=== PATIENT | female | born 1945 | race Caucasian/White ===

== ENCOUNTER → 2019-01-14 | Outpatient (CLI) | payer OTHER ==
[~2019-01-14] MED LIST: ADDERALL PO; BUPROPION PO; CALTRATE-600 W1 EACH PO; ESTRACE PO; IRON PO; PREMARIN0.625 MG PO; SPIRONOLACTONE100 M1 PO; SYNTHROID50 MCG PO; VITAMIN D-32000 UNIT PO
== END ==
LOC: ULTRA 08:48
DX: K76.89 Other specified diseases of liver (principal)

== ENCOUNTER → 2019-01-24 | Outpatient (CLI) | payer OTHER | LOC: NUC 11:55 | DX: M81.0 Age-related osteoporosis without current pathological fracture (principal); E21.3 Hyperparathyroidism, unspecified; Z78.0 Asymptomatic menopausal state ==

== ENCOUNTER → 2020-07-12 | Outpatient (CLI) | payer OTHER | LOC: LAB 07:26 | PROVIDERS: ATTEND Neuromusculoskeletal Medicine & OMM | DX: Z20.828 Contact with and (suspected) exposure to other viral communicable diseases (principal) ==

== ENCOUNTER → 2020-08-06 | Outpatient (CLI) | payer OTHER | LOC: SJCVC 16:26 | PROVIDERS: ATTEND Internal Medicine | DX: R94.31 Abnormal electrocardiogram [ECG] [EKG] (principal); I10 Essential (primary) hypertension; E78.5 Hyperlipidemia, unspecified; Z79.899 Other long term (current) drug therapy; Z87.891 Personal history of nicotine dependence ==

== ENCOUNTER → 2020-09-26 | Outpatient (CLI) | payer OTHER | LOC: LAB 09:42 | PROVIDERS: ATTEND Internal Medicine | DX: Z01.812 Encounter for preprocedural laboratory examination (principal); Z20.828 Contact with and (suspected) exposure to other viral communicable diseases ==

== ENCOUNTER → 2020-09-27 | Outpatient (CLI) | payer OTHER ==
--- NOTE | 2020-10-06 16:17 | MCT ---
[facility] [place] [address] METHACHOLINE CHALLENGE TEST Name: EVAN BELLA Room #: REG [facility] Radha#: [id number] Admission: 09/27/20 Attend Phys: Dorian Lowery MD Discharge: Date of : 47 Report #: [id number] THIS REPORT FOR: //name// COPIES FOR: AGE: 75 SEX/RACE: F/C Height: 63 in Exam Date: 09/27/20 Weight: 112 lbs BTPS: X >> PRE BRONCHODILATOR: PREDICTED BEST %PRED FORCED VITAL CAPACITY (FRC) 2.62 L 3.71 LPM 142 % FORCED EXP VOL/SEC (FEV1) 1.82 L 2.53 FEV/FVC 139 % MAX MID-EXP FLOW (FEF 25-75) 2.11 L/SEC 1.41 L/SEC 67 % PEAK EXP FLOW RATE (FEF MAX) 5.25 L/MIN 6.16 L/MIN MED-VC RATIO (FEF 50/FEF 50) .09 Baseline: Phenol Saline Level 1: 0.025 mg/ml BEST %PRED %CHANGE BEST %PRED %CHANGE FVC 3.71 L 142 % % FVC 3.74 L 143 % 1 % FEV1 2.53 L 139 % % FEV1 2.56 L 140 % 1 % Level 2: 0.25 mg/ml Level 3: 2.5 mg/ml BEST %PRED %CHANGE BEST %PRED %CHANGE FVC 3.73 L 142 % 0 % FVC 3.73 L 142 % 0 % FEV1 2.61 L 143 % 3 % FEV1 2.58 L 142 % 2 % . Level 4: 10 mg/ml Level 5: 25 mg/ml BEST %PRED %CHANGE BEST %PRED %CHANGE FVC 3.72 L 142 % 0 % FVC 3.70 L 142 % -0 % FEV1 2.55 L 140 % 1 % FEV1 2.45 L 134 % -3 % Post Bronchodilator: 1st Treatment Post Bronchodilator: 2nd Treatment BEST %PRED %CHANGE BEST %PRED %CHANGE FVC 3.62 L 138 % -3 % FVC L % % FEV1 2.63 L 144 % 4 % FEV1 L % % Post Bronchodilator: 3rd Treatment BEST %PRED %CHANGE [facility] [address] [place] [address] METHACHOLINE CHALLENGE TEST Name: EVAN BELLA Room #: REG Cathi Garcia#: [id number] Admission: 09/27/20 Attend Phys: Dorian Lowery MD Discharge: Date of : 47 Report #: [id number] FVC L % % FEV1 L % % >> INTERPRETATION: DATE OF SERVICE: 09/27/2020 METHACHOLINE CHALLENGE TEST Methacholine challenge test was completed in a routine standard fashion with increasing doses of methacholine. Baseline FEV1 was 2.53 liters (139% predicted). FVC baseline is 3.71 liters (142% predicted). Increasing doses of methacholine, there was no significant response to methacholine challenge, at the fifth dose of methacholine, there was no significant decline in FEV1. Dani was 2.45 liters (134% predicted) and FVC decreased to 3.70 liters (142% predicted). IMPRESSION: Negative methacholine challenge. <ELECTRONICALLY SIGNED> By: Corey Cummings MD 10/06/20 1617 Corey Cummings MD /nt
== END ==
LOC: PUL 09-26 15:04
PROVIDERS: ATTEND Internal Medicine
DX: R06.00 Dyspnea, unspecified (principal)

== ENCOUNTER 2021-10-14 17:19 | Emergency (ER) | payer OTHER ==
[~2021-10-14] VITALS: Ht 160 cm; Wt 52.6 kg
[2021-10-14 20:07] VITALS: BP 141/75
== END 2021-10-14 20:09 | disposition home or self-care (01) ==
LOC: ER 17:19
DX: S01.81XA Laceration without foreign body of other part of head, initial encounter (principal); Z90.710 Acquired absence of both cervix and uterus; Z98.890 Other specified postprocedural states; Z79.899 Other long term (current) drug therapy; Z88.2 Allergy status to sulfonamides; W19.XXXA Unspecified fall, initial encounter; Y93.89 Activity, other specified; Y92.89 Other specified places as the place of occurrence of the external cause; Y99.8 Other external cause status

== ENCOUNTER 2021-10-23 17:17 | Emergency (ER) | payer OTHER ==
[~2021-10-23] VITALS: Ht 160 cm; Wt 52.6 kg
[2021-10-23 17:20] VITALS: BP 133/72
== END 2021-10-23 17:46 | disposition home or self-care (01) ==
LOC: ER 17:17
DX: S01.81XD Laceration without foreign body of other part of head, subsequent encounter (principal); Z48.02 Encounter for removal of sutures; Z98.890 Other specified postprocedural states; Z90.710 Acquired absence of both cervix and uterus; Z79.899 Other long term (current) drug therapy; Z88.2 Allergy status to sulfonamides; X58.XXXD Exposure to other specified factors, subsequent encounter